=== PATIENT | female | born 1975 | race Caucasian/White ===

== ENCOUNTER → 2024-01-07 | Outpatient (CLI) | payer OTHER ==
--- NOTE | 2024-01-15 22:22 | MR ---
EXAMINATION TYPE: MR knee LT wo con DATE OF EXAM: 01/07/2024 COMPARISON: Outside radiograph 12/05/2023 HISTORY: 48-year-old female M25.562 Lt knee pain TECHNIQUE: Multiplanar, multisequence imaging of the left knee is performed without IV contrast. FINDINGS: The ACL and PCL are intact. There is edema along the deep fibers of the MCL which otherwise remains intact. LCL complex is intact. There is an oblique undersurface tear at the junction of the posterior horn extending into the body o f the medial meniscus. There is moderate to severe cartilage loss throughout the mid aspect of the me dial compartment. Reactive subchondral marrow signal change is present throughout this region. Lateral meniscus is intact. Degenerative spurring is present in the lateral compartment. No high-grad e chondral injury here. Some degenerative spurring is present in the patellofemoral compartment. Some superficial cartilage f issuring along the backside of the patella but with overall preserved cartilage volume. Extensor mechanism is intact. There is edema within the suprapatellar fat pad. Small knee joint effusion without Loza's cyst. Normal popliteal artery anatomy and muscle bulk. No suspicious bone marrow replacement. IMPRESSION: 1. 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 2. Grade 1 MCL sprain. 3. Oblique undersurface tear at the junction of the posterior horn and body of the medial meniscus ex tending into the meniscal body. [facility], , 01/15/2024 10:20 PM
== END | disposition home or self-care (01) ==
LOC: RADMRIMAIN 10:54
PROVIDERS: ATTEND Orthopaedic Surgery
DX: M25.562 Pain in left knee